=== PATIENT | male | born 1970 | race Caucasian/White ===

== ENCOUNTER 2019-07-12 21:50 | Emergency (ER) | payer OTHER ==
[2019-07-12 22:03] VITALS: BP 150/83; PULSE 79; TEMP 98; BMI 44.6
[2019-07-12] MEDS ORDERED: ACETAMINOPHEN 500 MG TABLET (FP) PO ONE (23:08)
[2019-07-12] MEDS ORDERED: ACETAMINOPHEN 325 MG TABLET (FP) ONE (23:11)
--- NOTE | 2019-07-12 23:16 | PDOC ---
History of Present Illness - General Chief Complaint: Pain Stated Complaint: LT LEG PAIN Time Seen by Provider: 07/12/19 22:33 - History of Present Illness Initial Comments: 07/12/19 23:10 Pt is a 48y/o male with HTN, HLD, hx of back pain who presents with 2 weeks of sudden onset left posterior knee pain. He reports pain occurs with knee flexion , especially with walking with max pain 10/10. There is no radiation of pain or any swelling. He denies associated back pain. Pt has been using Icy Hot and ice with no relief. He tried ibuprofen yesterday with no relief. He denies recent injury. Pt is a food restaurant delivery driver. He denies fever, chills, nausea, or vomiting. L3 nerve root impingement on MRI in 09/27. No hx of clotting disorders. No family hx of MSK disorders. Past History - Past Medical History Allergies/Adverse Reactions: Allergies Allergy/AdvReac Type Severity Reaction Status Date / Time No Known Allergies Allergy Verified 07/12/19 21:56 Home Medications: Ambulatory Orders No Home Medications 0 dose .ROUTE UTDICT 11/05/13 COPD: No Diabetes: Yes HTN: Yes Hypercholesterolemia: Yes - Immunization History Immunization Up to Date: Yes - Psycho Social/Smoking Cessation Hx Smoking History: Never smoked Have you smoked in the past 12 months: No Hx Alcohol Use: No Substance Use Type: None Review of Systems - Review of Systems Constitutional: No: Chills, Fever Respiratory: No: Shortness of Breath ABD/GI: No: Nausea, Vomiting Musculoskeletal: Yes: Joint Pain. No: Back Pain, Joint Swelling Integumentary: No: Bruising Neurological: No: Weakness *Physical Exam - Vital Signs Last Vital Signs Temp Pulse Resp BP Pulse Ox 98 F 79 18 150/83 99 07/12/19 21:52 07/12/19 21:52 07/12/19 21:52 07/12/19 21:52 07/12/19 21:52 - Physical Exam General Appearance: Yes: Appropriately Dressed, Obese. No: Apparent Distress HEENT: positive: EOMI, FARIBA Neck: positive: Trachea midline Respiratory/Chest: positive: Lungs Clear Cardiovascular: positive: Regular Rhythm, Regular Rate. negative: Murmur Musculoskeletal: negative: Vertebral Tenderness Extremity: positive: Other (left knee non-tender, no swelling or erythema) Neurologic: positive: Fully Oriented, Alert, Normal Mood/Affect, Motor Strength 5/5 (left knee) ED Treatment Course - RADIOLOGY Radiology Studies Ordered: Category Date Time Status DUPLEX VASCUL US-1 LEG [US] Stat Ultrasound 07/12/19 23:06 Ordered Medical Decision Making - Medical Decision Making 07/12/19 23:16 Pt is a 48y/o male with HTN, HLD, hx of back pain who presents with 2 weeks of sudden onset left posterior knee pain. ddx: Bishop's cyst, DVT orders: Tylenol, U/S Discharge - Discharge Information Problems reviewed: Yes Clinical Impression/Diagnosis: Pain, Eloped from emergency department Knee pain, left Qualifiers: Chronicity: unspecified Qualified Code(s): M25.562 - Pain in left knee Condition: Unchanged/Unknown Disposition: ELOPED - Follow up/Referral Referrals: Etienne Heck MD [Staff Physician] - Kp Dash MD [Staff Physician] - Pasha Larson MD [Staff Physician] - Du Pastrana DO [Staff Physician] - Lavon Cordero MD [Staff Physician] - Renato Cardoza MD [Primary Care Provider] - Chavo Pérez DO [Staff Physician] - Christiano Gustafson MD [Staff Physician] - - Patient Discharge Instructions - Post Discharge Activity
--- NOTE | 2019-07-12 23:17 | PDOC ---
Documentation entered by Madison Duran SCRIBE, acting as scribe for Monse Solo MD. Monse Solo MD: This documentation has been prepared by the Renee bolden Nirvannie, SCRIBE, under my direction and personally reviewed by me in its entirety. I confirm that the documentation accurately reflects all work, treatment, procedures, and medical decision making performed by me. Attending Attestation - Resident Resident Name: Berta Roca - ED Attending Attestation I have performed the following: I have examined & evaluated the patient, The case was reviewed & discussed with the resident, I agree w/resident's findings & plan, Exceptions are as noted - HPI HPI: 07/12/19 23:04 The patient is a 48 year old male, with a significant past medical history of HTN, HLD, who presents to the emergency department with 2 weeks of posterior left knee pain. He describes his pain as a stabbing worsened with flexion and with upward movements. He notes the ability to ambulate without difficulty. Patient used Ibuprofen and Icy Hot without relief, prompting his arrival to the ED. He denies any recent trauma to the knee. He denies any calf pain. He denies any recent fevers, chills, headache or dizziness. He denies any recent nausea, vomiting, diarrhea or constipation. He denies any recent chest pain or shortness of breath. Allergies: NKDA Primary Care Physician: Dr. Cardoza - Physicial Exam PE: GENERAL: Awake, alert, and fully oriented, in no acute distress HEAD: No signs of trauma EYES: PERRLA, EOMI, sclera anicteric, conjunctiva clear ENT: Auricles normal inspection, hearing grossly normal, nares patent, oropharynx clear without exudates. Moist mucosa NECK: Normal ROM, supple, no lymphadenopathy, JVD, or masses LUNGS: Breath sounds equal, clear to auscultation bilaterally. No wheezes, and no crackles HEART: Regular rate and rhythm, normal S1 and S2, no murmurs, rubs or gallops ABDOMEN: Soft, nontender, normoactive bowel sounds. No guarding, no rebound. No masses EXTREMITIES: Normal range of motion, no edema. No clubbing or cyanosis. No cords, erythema. SLR negative B/L. +Tenderness to L popliteal fossa NEUROLOGICAL: Cranial nerves II through XII grossly intact. Normal speech, normal gait. Motor and sensation intact SKIN: Warm, dry, normal turgor, no rashes or lesions noted. - Medical Decision Making Pt with L knee pain localizing to the popliteal fossa. DVT vs young cyst. Will obtain duplex. Likely DC home. 07/13/19 02:00 Ultrasound with no acute findings. XR was obtained, poss linear FB (however, patient was wearing pants). Bedside ultrasound was performed, no FB visualized. Will repeat XR. Pain is not in the area where the linear FB is located, so it is likely not the source of pain. No skin changes to imply infection. Signed out to Dr. Matos at shift change. F/u XR, DC home.
--- NOTE | 2019-07-13 00:23 | PDOC ---
*Physical Exam - Vital Signs Last Vital Signs Temp Pulse Resp BP Pulse Ox 98 F 79 18 150/83 99 07/12/19 21:52 07/12/19 21:52 07/12/19 21:52 07/12/19 21:52 07/12/19 21:52 ED Treatment Course - Medications Given in the ED: ED Medications Discontinued Medications Generic Name Dose Route Start Last Admin Trade Name Smith PRN Reason Stop Dose Admin Acetaminophen 1,000 mg 07/12/19 23:08 07/12/19 23:13 Tylenol - PO 07/12/19 23:09 1,000 mg ONCE ONE Administration Medical Decision Making - Medical Decision Making 07/13/19 00:22 pt signed out. Pt is a 48y/o male with HTN, HLD, hx of back pain who presents with 2 weeks of sudden onset left posterior knee pain. He reports pain occurs with knee flexion , especially with walking with max pain 10/10. There is no radiation of pain or any swelling. He denies associated back pain. Pt has been using Icy Hot and ice with no relief. He tried ibuprofen yesterday with no relief. He denies recent injury. Pt is a food local delivery driver. He denies fever, chills, nausea, or vomiting. pending doppler and xray. doppler negative for dvt or bakers cyst. xray shows foreign body in posterial medial soft tissue. pt waswearing the pants , will remove and rpt xray. bedside sono with no evidence of fb. pt was angry with waiting for xray and left. pt eloped. 07/13/19 07:54 Discharge - Discharge Information Problems reviewed: Yes Clinical Impression/Diagnosis: Pain Knee pain, left Qualifiers: Chronicity: unspecified Qualified Code(s): M25.562 - Pain in left knee Disposition: ELOPED - Follow up/Referral Referrals: Renato Cardoza MD [Primary Care Provider] - Pasha Larson MD [Staff Physician] - Christiano Gustafson MD [Staff Physician] - Etienne Heck MD [Staff Physician] - Lavon Cordero MD [Staff Physician] - Kp Dash MD [Staff Physician] - Chavo Pérez DO [Staff Physician] - Du Pastrana DO [Staff Physician] - - Patient Discharge Instructions - Post Discharge Activity
== END 2019-07-13 03:11 | disposition left against medical advice (07) ==
LOC: JER 21:50
PROC: BH48ZZZ Ultrasonography of Lower Extremity (ICD-10-PCS; principal; 2019-07-12)
DX: M25.562 Pain in left knee (principal); I10 Essential (primary) hypertension; E78.00 Pure hypercholesterolemia, unspecified; E11.9 Type 2 diabetes mellitus without complications
CPT/HCPCS: 73560-TC-LT-FY; 76882-TC-LT-FY; 93971-TC; 99282-25

== ENCOUNTER 2019-07-27 13:32 | Emergency (ER) | payer OTHER ==
[2019-07-27 13:52] VITALS: BP 139/81; PULSE 84; TEMP 98.3; BMI 45.4
--- NOTE | 2019-07-27 14:18 | PDOC ---
History of Present Illness - General Chief Complaint: Pain, Acute Stated Complaint: LEFT LEG PAIN Time Seen by Provider: 07/27/19 13:55 History Source: Patient Exam Limitations: No Limitations - History of Present Illness Initial Comments: 07/27/19 14:14 Patient is a 48-year-old male with history of hypertension who presents to the ED with complaint of left knee pain that he has had for the last 3 weeks. He was seen in the emergency department 3 weeks ago and was told that the x-rays were negative. He has not been able to walk since. He denies any known injury. He states the pain started suddenly without injury. He was advised to follow-up with orthopedics but states the orthopedist that he was referred to does not take his insurance. He denies any numbness or tingling. He denies any shortness of breath. He denies any recent long travel in a car in a plane. Past History - Past Medical History Allergies/Adverse Reactions: Allergies Allergy/AdvReac Type Severity Reaction Status Date / Time No Known Allergies Allergy Verified 07/27/19 13:51 Home Medications: Ambulatory Orders No Home Medications 0 dose .ROUTE UTDICT 11/05/13 COPD: No Diabetes: Yes HTN: Yes Hypercholesterolemia: Yes - Immunization History Immunization Up to Date: Yes - Psycho Social/Smoking Cessation Hx Smoking History: Never smoked Have you smoked in the past 12 months: No Information on smoking cessation initiated: No Hx Alcohol Use: No Drug/Substance Use Hx: No Substance Use Type: None Review of Systems - Review of Systems Comments:: 07/27/19 14:15 - Review of Systems Able to Perform ROS?: Yes Constitutional: No: Fever, Chills, Loss of Appetite, Night Sweats, Weakness HEENTM: No: Eye Pain, Vision changes, Ear Pain, Throat Pain, Throat Swelling, Mouth Pain, Difficulty Swallowing Respiratory: No: Cough, Shortness of Breath, Wheezing, Sputum Production Cardiac (ROS): No: Chest Pain, Chest Tightness, Palpitations, Irregular Heart Beat, Edema ABD/GI: No: Nausea, Vomiting, Abdominal Pain, Diarrhea Musculoskeletal: No: Muscle Pain, Back Pain, Muscle Weakness, Neck Pain; positive left knee pain Integumentary: No: Lesions, Rash Neurological: No: Headache, Numbness, Tingling, Weakness, Speech Difficulties *Physical Exam - Vital Signs Last Vital Signs Temp Pulse Resp BP Pulse Ox 98.3 F 84 16 139/81 100 07/27/19 13:48 07/27/19 13:48 07/27/19 13:48 07/27/19 13:48 07/27/19 13:48 - Physical Exam 07/27/19 14:15 - Physical Exam General Appearance: Nourished, Appropriately Dressed, No Distress Neck: Supple, No Lymphadenopathy (R), No Lymphadenopathy (L), No Rigidity, No Decreased range of motion Respiratory/Chest: Lungs Clear, Normal Breath Sounds. No Respiratory Distress, No Accessory Muscle Use Cardiovascular: Regular Rhythm, Regular Rate, S1, S2 Musculoskeletal: Normal Inspection. Left knee with significant medial and posteromedial tenderness to palpation. Patient unable to flex the knee past 30 degrees from full extension. No calf tenderness to palpation. DP and PT pulses palpable. EHL intact. Extremity: Normal Capillary Refill, Normal Inspection Integumentary: Normal Color, Dry. No Rash Neurologic: balance truer II-XII NML intact, Fully Oriented, Alert, Normal Mood/Affect, Normal Response ED Treatment Course - ADDITIONAL ORDERS Additional order review: 07/27/19 15:27 The patient's DVT study has been read as negative for acute DVT or for any popliteal cyst visualized. X-ray is negative for acute pathology. We will give the patient crutches and have him follow-up with orthopedics. He has been made aware that if the the orthopedist does not take his insurance then he will have to call his insurance company for a referral or his primary doctor. The patient understands and agrees with this treatment plan and the patient is stable for discharge. - RADIOLOGY Radiology Studies Ordered: Category Date Time Status KNEE 3 POS-LEFT [RAD] Stat Radiology 07/27/19 14:03 Ordered DUPLEX VASCUL US-1 LEG [US] Stat Ultrasound 07/27/19 14:03 Ordered - Medications Given in the ED: ED Medications Discontinued Medications Generic Name Dose Route Start Last Admin Trade Name Freq PRN Reason Stop Dose Admin Oxycodone/Acetaminophen 1 combo 07/27/19 14:03 07/27/19 14:08 Percocet 5/325 - PO 07/27/19 14:04 1 combo ONCE ONE Administration Medical Decision Making - Medical Decision Making 07/27/19 14:17 Assessment: Patient is a 48-year-old male with posterior and medial left knee pain without injury. Plan: -Left knee x-ray for reevaluation -Left lower extremity ultrasound to rule out DVT -Percocet p.o. for pain -Will reassess 07/27/19 15:29 The patient has been made aware that his ultrasound and his x-ray were negative for acute pathology. He has been made aware that he may need an MRI for further evaluation. We will refer him to orthopedics and give him crutches. He understands and agrees with this treatment plan and he is stable for discharge. Discharge - Discharge Information Problems reviewed: Yes Clinical Impression/Diagnosis: Left medial knee pain Condition: Stable Disposition: HOME - Follow up/Referral Referrals: Teddy Rosas MD [Primary Care Provider] - Etienne Heck MD [Staff Physician] - 1 week - Patient Discharge Instructions Patient Printed Discharge Instructions: DI for Knee Pain Additional Instructions: Ice and elevate your knee. Take ibuprofen or Tylenol for pain. Use the crutches as needed. You should follow-up with orthopedics within 1 week for repeat evaluation. If the orthopedist does not take your insurance, you may have to call your insurance company to see what orthopedist does. Print Language: MALAY - Post Discharge Activity Work/Back to School Note: Back to Work
== END 2019-07-27 15:41 | disposition home or self-care (01) ==
LOC: JERFT 13:32
DX: M25.562 Pain in left knee (principal); I10 Essential (primary) hypertension; E78.00 Pure hypercholesterolemia, unspecified; E11.9 Type 2 diabetes mellitus without complications
CPT/HCPCS: 73562-TC-LT-FY; 93971-TC; 99284-25

== ENCOUNTER 2021-06-23 14:18 | Emergency (ER) | payer OTHER ==
[2021-06-23 14:30] VITALS: BP 150/105; PULSE 72; TEMP 97.9; BMI 43.8
[2021-06-23] MEDS ORDERED: METOCLOPRAMIDE HCL INJECTION 10 MG/2 ML VIAL IVPUSH STA (15:54)
[2021-06-23] MEDS ORDERED: LACTATED RINGERS SOLUTION 1000 ML INFUS.BAG IV ONE (15:55)
[2021-06-23] MEDS ORDERED: MECLIZINE HCL 25 MG TABLET (FP) PO ONE (15:56)
[2021-06-23] MEDS ORDERED: METOCLOPRAMIDE HCL INJECTION 10 MG/2 ML VIAL ONE (16:09)
[2021-06-23] MEDS ORDERED: MECLIZINE HCL 25 MG TABLET (FP) ONE (16:09)
[2021-06-23 18:06] LABS: VENOUS BASE EXCESS 0.4 mmol/L (-2-2); VENOUS O2 SATURATION 90.5 % (70-80); VENOUS PCO2 45.9 mmHg (38-52); VENOUS PH 7.375 (7.310-7.410)
[2021-06-23 18:15] LABS: BASO % 0.4 % (0-2.0); EOS % 0.4 % (0-4.5); HEMATOCRIT 47.8 % (35.4-49); HEMOGLOBIN 16.1 GM/dL (11.7-16.9); LYMPH % 11.3 % (8-40); MCH 29.2 pg (25.7-33.7); MCHC 33.7 g/dl (32.0-35.9); MEAN CELL VOLUME 86.6 fl (80-96); MEAN PLT VOLUME 9.5 fl (7.5-11.1); MONO % 4.1 % (3.8-10.2); NEUT % 83.8 % (42.8-82.8); PLATELET COUNT 198 10^3/uL (134-434); RBC 5.52 M/mm3 (4.00-5.60); RDW 13.4 % (11.9-15.9); WHITE BLOOD COUNT 11.2 K/mm3 (4.0-10.0)
[2021-06-23 18:24] LABS: CALCIUM 9.7 mg/dL (8.5-10.1)
[2021-06-23 18:25] LABS: ALBUMIN 4.1 g/dl (3.4-5.0); BLOOD UREA NITROGEN 15.3 mg/dL (7-18)
[2021-06-23 18:28] LABS: CREATININE 0.8 mg/dL (0.55-1.3)
[2021-06-23 18:30] LABS: BILIRUBIN,TOTAL 0.4 mg/dL (0.2-1); TOT PROT 7.9 g/dl (6.4-8.2)
[2021-06-23 19:46] LABS: URINE APPEARANCE CLEAR; URINE BILIRUBIN NEGATIVE (NEGATIVE); URINE COLOR YELLOW; URINE KETONE 40 mg/dl (NEGATIVE)
[2021-06-23 19:47] LABS: EPI CELLS 8 /uL (0-25.1); HYALINE CASTS 0.25 /uL (0-3.1); PH,URINE 5.5 (5.0-8.0); URINE BACTERIA 16.3 /uL (0-1359); URINE LEUK ESTERASE NEGATIVE (NEGATIVE); URINE NITRITE NEGATIVE (NEGATIVE); URINE PROTEIN 30 (NEGATIVE); URINE RBC 1047 /uL (0-23.9); URINE UROBILINOGEN 0.2 mg/dL (0.2-1.0); URINE WBC 12 /uL (0-25.8)
== END 2021-06-23 20:39 | disposition home or self-care (01) ==
LOC: JER 14:18
PROC: 3E033GC Introduction of Other Therapeutic Substance into Peripheral Vein, Percutaneous Approach (ICD-10-PCS; principal; 2021-06-23)
DX: R73.9 Hyperglycemia, unspecified (principal); R55 Syncope and collapse
CPT/HCPCS: 36415; 70450-TC; 80053; 81003; 82010; 82803; 82962; 85025; 93005; 93010; 99285-25; C9803; U0003; U0005

== ENCOUNTER 2021-11-02 12:49 | Emergency (ER) | payer OTHER ==
[2021-11-02 13:28] VITALS: TEMP 98.6; BMI 45.4
[2021-11-02] MEDS ORDERED: DICYCLOMINE HCL 20 MG TABLET PO ONE (14:23)
[2021-11-02] MEDS ORDERED: SODIUM CHLORIDE 1,000 ML IV STA (14:23)
[2021-11-02] MEDS ORDERED: MAG HYDROX/AL HYDROX/SIMETH 30 ML UNIT-DOSE CUP PO ONE (14:24)
[2021-11-02] MEDS ORDERED: DICYCLOMINE HCL 10 MG CAPSULE ONE (14:33)
[2021-11-02] MEDS ORDERED: MAG HYDROX/AL HYDROX/SIMETH 30 ML UNIT-DOSE CUP ONE (14:34)
[2021-11-02 15:55] LABS: BASO % 0.5 % (0-2.0); HEMATOCRIT 43.6 % (35.4-49); HEMOGLOBIN 14.4 GM/dL (11.7-16.9); LYMPH % 26.1 % (8-40); MCH 29.5 pg (25.7-33.7); MCHC 33.1 g/dl (32.0-35.9); MEAN CELL VOLUME 89.1 fl (80-96); MEAN PLT VOLUME 9.5 fl (7.5-11.1); MONO % 12.1 % (3.8-10.2); NEUT % 55.3 % (42.8-82.8); PLATELET COUNT 172 10^3/uL (134-434); RBC 4.89 M/mm3 (4.00-5.60); RDW 13.6 % (11.9-15.9); WHITE BLOOD COUNT 6.9 K/mm3 (4.0-10.0)
[2021-11-02 16:22] LABS: ALBUMIN 3.5 g/dl (3.4-5.0); BLOOD UREA NITROGEN 13.9 mg/dL (7-18)
[2021-11-02 16:25] LABS: CREATININE 0.6 mg/dL (0.55-1.3)
[2021-11-02 16:27] LABS: BILIRUBIN,TOTAL 0.6 mg/dL (0.2-1); TOT PROT 7.2 g/dl (6.4-8.2)
[2021-11-02 18:17] VITALS: BP 126/80; PULSE 79
== END 2021-11-02 17:25 | disposition home or self-care (01) ==
LOC: JER 12:49
PROC: 3E0337Z Introduction of Electrolytic and Water Balance Substance into Peripheral Vein, Percutaneous Approach (ICD-10-PCS; principal; 2021-11-02)
DX: K52.9 Noninfective gastroenteritis and colitis, unspecified (principal)
CPT/HCPCS: 36415; 80053; 83690; 85025; 99284-25

== ENCOUNTER 2024-01-11 11:48 | Emergency (ER) | payer OTHER ==
[2024-01-11 11:58] VITALS: TEMP 98.6; BMI 46.0
[2024-01-11 12:40] LABS: BASO % 0.7 % (0-2.0); EOS % 7.3 % (0-4.5); HEMATOCRIT 42.1 % (35.4-49); LYMPH % 15.9 % (8-40); MCH 29.5 pg (25.7-33.7); MCHC 33.3 g/dl (32.0-35.9); MEAN CELL VOLUME 88.7 fl (80-96); MEAN PLT VOLUME 9.6 fl (7.5-11.1); MONO % 6.7 % (3.8-10.2); NEUT % 69.4 % (42.8-82.8); PLATELET COUNT 186 10^3/uL (134-434); RBC 4.75 M/mm3 (4.00-5.60); RDW 13.5 % (11.9-15.9); WHITE BLOOD COUNT 10.7 K/mm3 (4.0-10.0)
[2024-01-11] MEDS ORDERED: ACETAMINOPHEN INJECTION 100 ML IVPB ONE (12:53)
[2024-01-11] MEDS: ACETAMINOPHEN 1000 MG/100 ML BAG IVPB ONE (12:54)
[2024-01-11 12:57] VITALS: BP 129/82; PULSE 85; RESP 16
[2024-01-11 13:05] LABS: POTASSIUM 4.1 mmol/L (3.5-5.1)
[2024-01-11 13:08] LABS: BLOOD UREA NITROGEN 13.4 mg/dL (7-18); CALCIUM 8.9 mg/dL (8.5-10.1)
[2024-01-11 13:09] LABS: ALBUMIN 3.6 g/dl (3.4-5.0); MAGNESIUM 2.2 mg/dL (1.8-2.4)
[2024-01-11 13:11] LABS: CREATININE 0.9 mg/dL (0.55-1.3)
[2024-01-11 13:11] LABS: INR 1.01 (0.83-1.09); PROTHROMBIN TIME (PATIENT) 11.6 SEC (9.7-13.0)
[2024-01-11 13:13] LABS: BILIRUBIN,TOTAL 0.4 mg/dL (0.2-1)
[2024-01-11 13:14] LABS: ACTIVATED PTT 34.1 SECONDS (25.2-36.5)
[2024-01-11] MEDS ORDERED: MAG HYDROX/AL HYDROX/SIMETH 30 ML UNIT-DOSE CUP ONE (14:11)
[2024-01-11] MEDS ORDERED: FAMOTIDINE 20 MG/50 ML IVPB 20 MG/50 ML MG IVPB ONE (14:11)
[2024-01-11] MEDS: LACTATED RINGERS SOLUTION 1000 ML INFUS.BAG IV ONE (14:12)
[2024-01-11] MEDS: MAG HYDROX/AL HYDROX/SIMETH 30 ML UNIT-DOSE CUP PO ONE (14:12)
[2024-01-11] MEDS: FAMOTIDINE 20 MG/50 ML IVPB 20 MG/50 ML MG IVPB ONE (14:12)
[2024-01-11 20:45] LABS: HIV INTERPRETATION NEGATIVE (NEGATIVE)
== END 2024-01-11 15:38 | disposition home or self-care (01) ==
LOC: JER 11:48
PROC: 3E033GC Introduction of Other Therapeutic Substance into Peripheral Vein, Percutaneous Approach (ICD-10-PCS; principal; 2024-01-11)
PROC: 3E033NZ Introduction of Analgesics, Hypnotics, Sedatives into Peripheral Vein, Percutaneous Approach (ICD-10-PCS; 2024-01-11)
DX: R06.02 Shortness of breath (principal); R07.89 Other chest pain; Z20.822 Contact with and (suspected) exposure to COVID-19
CPT/HCPCS: 0241U-QW; 36415; 71046-TC-FY; 80053; 83735; 84484; 85025; 85610; 85730; 86803; 87389; 93005; 93010; 99285-25; J0131

== ENCOUNTER 2024-02-12 12:35 | Emergency (ER) | payer SELFPAY ==
[2024-02-12 12:47] VITALS: BP 139/88; PULSE 87; RESP 18; TEMP 98.4; BMI 61.8
== END 2024-02-12 13:41 | disposition left against medical advice (07) ==
LOC: JERFT 12:35
DX: K08.89 Other specified disorders of teeth and supporting structures (principal)
CPT/HCPCS: 99282-25